=== PATIENT | male | born 1950 | race Caucasian/White ===

== ENCOUNTER → 2017-11-07 | Outpatient (CLI) | payer OTHER | END | disposition home or self-care (01) | LOC: OIH 08:30 | PROVIDERS: ATTEND Internal Medicine | DX: M19.011 Primary osteoarthritis, right shoulder (principal); M24.811 Other specific joint derangements of right shoulder, not elsewhere classified | CPT/HCPCS: 73030 ==

== ENCOUNTER → 2018-06-03 | Outpatient (CLI) | payer OTHER | END | disposition home or self-care (01) | LOC: OIH 16:28 | PROVIDERS: ATTEND Internal Medicine | DX: I10 Essential (primary) hypertension (principal); M47.815 Spondylosis without myelopathy or radiculopathy, thoracolumbar region | CPT/HCPCS: 71046 ==

== ENCOUNTER → 2024-09-15 | Outpatient (CLI) | payer OTHER ==
--- NOTE | 2024-09-15 15:20 | HMCIMG ---
Exam Type: MR SHOULDER RIGHT WO Clinical Information: M75.101 Unspecified rotator cuff tear or rupture of right shoulder, not spe Comparison: None Findings: Significant degenerative changes of the glenohumeral joint with remodeling of the humeral head which may represent evidence of old trauma. Joint effusion of the glenohumeral joint. Partial thickness rotator cuff tendon tear without retraction. SLAP tear. Moderate glenohumeral joint effusion. No acute fractures or dislocations. IMPRESSION: Extensive changes as noted above.
== END | disposition home or self-care (01) ==
LOC: RAH 13:35
PROVIDERS: ATTEND Orthopaedic Surgery
DX: S46.011A Strain of muscle(s) and tendon(s) of the rotator cuff of right shoulder, initial encounter (principal); M19.011 Primary osteoarthritis, right shoulder; M25.411 Effusion, right shoulder; X58.XXXA Exposure to other specified factors, initial encounter; Y93.89 Activity, other specified; Y92.89 Other specified places as the place of occurrence of the external cause; Y99.8 Other external cause status
CPT/HCPCS: 73221

== ENCOUNTER 2025-04-05 09:41 | Observation (INO) | payer OTHER ==
[2025-04-04 10:28] LABS: IMMATURE GRANULOCYTE ABSOLUTE 0.01 K/uL (0-1); NUCLEATED RED BLOOD CELLS 0.0 % (0.0-0.19); PLATELET COUNT (AUTO) 143 K/uL (130-400); RED BLOOD CELL COUNT(AUTO) 4.70 MIL/uL (4.50-6.20); RED CELL DISTRIBUTION WIDTH 13.8 % (11.0-15.5); WHITE BLOOD COUNT (AUTO) 6.0 K/uL (4.8-10.8)
[2025-04-04 10:33] LABS: CREATININE 1.1 mg/dL (0.5-1.3); GLOMERULAR FILTR. RATE CALC 69.0 mL/min (>90); GLUCOSE,RANDOM 164.0 mg/dL (70-105); SODIUM SERUM 136.0 mmol/L (136-145); UREA NITROGEN, BLOOD 19.0 mg/dL (7-18)
[2025-04-04 10:35] LABS: APPEARANCE,URINE CLEAR (CLEAR); GLUCOSE, URINE (UA) 500 mg/dL (NEGATIVE); LEUKOCYTE ESTERASE ,URINE 75 Leu/uL (NEGATIVE); NITRATE,URINE NEGATIVE (NEGATIVE); OCCULT BLOOD,URINE MODERATE (NEGATIVE)
[2025-04-04 10:38] LABS: ADD UA MICROSCOPIC YES
[2025-04-04 10:42] VITALS: BP 125/68; PULSE 74; RESP 17; TEMP 98.6
[2025-04-04 10:45] LABS: INR 0.99 (0.85-1.15)
[2025-04-04 10:58] LABS: SQUAMOUS EPITHELIAL CELL,UR Rare /HPF (0-2)
--- NOTE | 2025-04-04 13:45 | NUR ---
RE: LABS REPORTED UA RESULTS TO DR DEWITT (PATIENT ASYMPTOMATIC). NO NEW ORDERS RECEIVED. PENDING URINE CX RESULTS.
[2025-04-05] VITALS (24 sets, daily range): BP systolic 98–152; BP diastolic 44–81; PULSE 69–94; RESP 18–22; TEMP 97.2–97.9; O2SAT 94
[~2025-04-05] VITALS: Ht 180.3 cm; Wt 123.1 kg
[~2025-04-05 09:41] MED LIST: ASPI-1197 PO; ATOR40TA71 PO; EMPA25TA PO; HYDR12.54 PO; LOSA50TA64 PO; METF-446 PO; OLOD4MIS2 IH; SEMA2PEN SQ; TAMSULOSIN PO
[2025-04-05] MEDS: 0.9%NACL 1000ML 1,000 ML IV ONE (10:12)
[2025-04-05] MEDS ORDERED: PROMETHAZINE HCL 25 MG/ML 1ML AMPULE IM PRN (11:30)
[2025-04-05] MEDS ORDERED: LIDOCAINE PF 100MG/5ML (2%) SYRINGE 5ML ONE (12:30)
[2025-04-05] MEDS ORDERED: MIDAZOLAM HCL 1 MG/ML 2ML VIAL ONE (12:32)
[2025-04-05] MEDS: TRANEXAMIC ACID 1000MG/10ML ONE ×2 (13:40→18:17)
[2025-04-05] MEDS ORDERED: NEOSTIGMINE METHYLSULFATE 1MG/ML IV ONE (14:27)
[2025-04-05] MEDS ORDERED: GLYCOPYRROLATE 0.2 MG/ML 5 ML VIAL ONE (14:27)
[2025-04-05] MEDS: SUGAMMADEX SODIUM 200 MG/2 ML VIAL IV ONE (16:09)
[2025-04-05] MEDS: FAMOTIDINE 20MG VIAL IV ONE (16:10)
[2025-04-05] MEDS: 0.9%NACL 1000ML 1,000 ML IV SCH (17:30)
[2025-04-05] MEDS ORDERED: PoTASSium chloRIDE 20MEQ ER 20 MEQ ERTAB PO PRN (17:30)
[2025-04-05] MEDS ORDERED: FE FUMARATE/FA/MV, MIN COMB#15 1 TAB PO PRN (17:30)
[2025-04-05] MEDS ORDERED: PoTASSium chl 10% ELIXIR 20MEQ 20 MEQ/15 ML UDCUP PO PRN (17:30)
[2025-04-05] MEDS ORDERED: CALCIUM CARB 500MG PO PRN (17:30)
--- NOTE | 2025-04-05 17:47 | OP ---
Operative Note: DATE OF PROCEDURE: 04/05/25 SURGEON: THAI DEWITT MD FIELD SEISMOLOGIST: [REECE GUSMAN AND ALVARO JEFFREY, SISSY'S] ANESTHESIA: [General anesthesia plus regional block] ANESTHESIOLOGIST/POST OFFICE MANAGER: [VALDO PHELPS CRNA] PREOPERATIVE DIAGNOSIS: [Right shoulder osteoarthritis, partial rotator cuff tear, labral tear, tendinosis rotator cuff] POSTOPERATIVE DIAGNOSIS: [Same] IMPLANTS: [Biomet comprehensive shoulder system. Mini glenoid base plate with one 6.5 central screw and four 4.75 peripheral screws. 36 mm glenosphere. 14 mm humeral stem. 40 mm humeral tray and 36 mm humeral bearing.] PROCEDURE: [Reverse right total shoulder arthroplasty] ESTIMATED BLOOD LOSS: [400 mL] INDICATIONS: [The patient is a 75-year-old male with a long history of right shoulder pain secondary to osteoarthritis that has not responded to conservative treatment in the longer. The patient has significant restriction in range of motion and chronic pain. The patient has been admitted for a total shoulder arthroplasty, procedure that he understood, risks, benefits and possible complications and agreed to sign the consent form] DESCRIPTION OF PROCEDURE: [After adequate general anesthesia was achieved and regional block obtained the patient was placed in the beach chair position and the right upper extremity was prepped and draped in the usual manner. After identification of the bony landmarks and incision was carried down in the anterior aspect of the shoulder following the deltopectoral line through the skin followed by dissection of the subcutaneous tissue. After identification of the cephalic vein the deltopectoral space was developed and we proceeded to dissect the 2 muscles and retract them to enter into the space identifying the clavipectoral fascia which was incised just lateral to the short head of the biceps and directed superiorly and inferiorly. With the arm in a slight abduction and with a Lockhart retractor elevating the abductor muscle were able to identify the subscapularis tendon and the insertion of the pectoralis muscle at the humerus as well as the circumflex vessels in the inferior border of the subscapularis. The vessels were ligated with two #1 Vicryl stitches at the most lateral aspect of the subscapularis,. The 1 cm superior portion of the pectoralis tendon insertion was cut leaving a small cuff of tendon and we then proceeded to open the long head of the biceps tendon sheath pulling then the tendon and applying to #2 Ethibond sutures through it and then tying it to the pectoralis cuff for a soft tissue tenodesis. The tendon was then cut proximal to this tenodesis and we followed the tendon proximally cutting through the tendon sheath all the way to the bicipital groove removing then the tendon at this level. At this point we proceeded then to peel of the subscapularis tendon of the lesser tuberosity while at the same time externally rotating the arm exposing the humeral head and proceeded with the dissection all the way to the posterior aspect of the humeral head using the Bovie cautery. A tag suture with #1 Ethibond stitch was applied to the superolateral corner of the subscapularis previous to the detachment. At this point the humeral head was presented through the wound by externally rotating the arm further and extending it. We then proceeded to make a starting hole in the top of the humeral head entering the canal and then we proceeded to ream out to the appropriate size leaving the last reamer in place and then applying the humeral head cutting guide with 40 d egree retroversion and after the guide was secured with pins we proceeded to remove the intramedullary reamer and with the use of the oscillating saw we proceeded to remove the humeral head. We then proceeded to use the rasps from the smallest to the chosen diameter obtain an adequate fit leaving the last rasp in place. Then retractors were applied anteriorly and posteriorly inferiorly to the glenoid keeping the arm externally rotated and after the glenoid was exposed we proceeded to remove the remnants of the labrum and we applied the a drill guide to prepare the area to place the glenoid base plate inserting through this guide a wire across the glenoid. At this point we then proceeded to apply the Reamer for the center post and the base plate once this was achieved the base plate was then inserted and tapped against the glenoid obtain an adequate fixation. A central 6.5 mm cortical screws was applied through the center post obtaining adequate fixation and continue the fixation of the baseplate with 4 peripheral screws. We then proceeded to apply the trial glenosphere and then the trial humeral insert and cup and the shoulder was reduced. Range of motion was tested and x-rays were taken once satisfied with the position of the components and the range of motion we proceeded then to remove the trial components. The joint was again irrigated with antibiotic solution and we then placed a final glenosphere and check the position with the C arm. Then we presented the proximal aspect of the humerus and after irrigating the canal we proceeded then to apply #2 Ethibond sutures through the anterior rim of the bone of the humerus and after this was completed we then proceeded to insert the final humeral stem followed by application of the humeral cup and insert. We then reduced the shoulder joint and repaired the subscapularis muscle back to the lesser tuberosity passing each end of the #2 Ethibond sutures through the tendon and then threaded them through the loops and tied them to themselves providing adequate reattachment. At this point we checked again the range of motion, stability and final x-rays were taken. A drain was placed through separate stab incision and we proceeded then to close the wound with reapproximation of the deltopectoral interval with #1 Vicryl simple stitches followed by closure of the subcutaneous tissue with 2-0 Monocryl inverted stitches and the skin was closed with running stitch with 3-0 Monocryl subcuticularly. Dermabond was applied to cover the incision and then Telfa dressing was applied to cover it and OpSite was then finally applied to cover the Telfa dressing. The drain was connected to the reservoir and the exit of the drain was covered with a Telfa dressing and an OpSite. The drapes were then removed, the patient was placed in an arm sling and then placed in the supine position and transferred to a hospital bed and taken to recovery room for follow-up by anesthesia. There were no complications during the procedure.] THAI DEWITT MD Apr 05, 2025 17:46
--- NOTE | 2025-04-05 18:26 | HMCIMG ---
EXAM: Intraoperative fluoroscopy INDICATION: Shoulder replacement FINDINGS: Multiple fluoroscopic images provided for shoulder replacement. Please refer to surgeon's operative note for further description of the examination. FLUOROSCOPIC TIME: 36.5 seconds No of Fluoro images: 15 IMPRESSION: Intraoperative fluoroscopy. /Gloria
[2025-04-05] MEDS: ASPIRIN 81 MG EC TAB PO SCH (20:03)
[2025-04-05] MEDS: FAMOTIDINE 20MG TAB PO SCH (20:03)
[2025-04-06] VITALS (7 sets, daily range): BP systolic 112–159; BP diastolic 56–86; PULSE 59–82; RESP 17–19; TEMP 97.4–97.8; O2SAT 98
[2025-04-06 03:50] LABS: NUCLEATED RED BLOOD CELLS 0.0 % (0.0-0.19); PLATELET COUNT (AUTO) 126.0 K/uL (130-400); RED BLOOD CELL COUNT(AUTO) 4.23 MIL/uL (4.50-6.20); RED CELL DISTRIBUTION WIDTH 13.9 % (11.0-15.5); WHITE BLOOD COUNT (AUTO) 9.0 K/uL (4.8-10.8)
[2025-04-06 04:16] LABS: CREATININE 1.1 mg/dL (0.5-1.3); GLOMERULAR FILTR. RATE CALC 69.0 mL/min (>90); GLUCOSE,RANDOM 154.0 mg/dL (70-105); SODIUM SERUM 135.0 mmol/L (136-145); UREA NITROGEN, BLOOD 21.0 mg/dL (7-18)
--- NOTE | 2025-04-06 11:12 | NUR ---
DC PLAN VISITED WITH PATIENT. PATIENT LIVES WITH SPOUSE. INDEPENDENT ABLE TO PERFORM ADL'S. PATIENT HAS NO SERVICES. CANDelmi 02 CPAP AT NIGHT. [facility]. Addendum: 04/06/25 at 1114 by MARYJANE ENGEL RN CM Amended: Links added.
[2025-04-06] MEDS ORDERED: OXYC-38 PO (15:29)
--- NOTE | 2025-04-06 15:32 | PN ---
POD #1 VSS, afebrile Adequate pain control Drain output: None Awake, alert, oriented. Dressing intact Drain removed, clear. Arm bruising present Distal NV intact A: S/P right shoulder reverse arthroplasty. P: Patient will be dismissed today. Arrangements completed. Vitals/Labs Vital Signs Date Time Temp Pulse Resp B/P (MAP) Pulse Ox O2 Delivery O2 Flow Rate FiO2 04/06/25 12:00 97.7 79 17 125/59 94 Room Air 04/06/25 07:13 0 21 Laboratory Tests 04/06/25 03:15 Medications Current Medications Cefazolin Sodium 1 gm STK-MED ONCE .ROUTE Last administered on 04/05/25at 14:53; Start 04/05/25 at 10:12; Stop 04/05/25 at 10:12; Status DC Cefazolin Sodium 2 gm STK-MED ONCE .ROUTE Last administered on 04/05/25at 13:50; Start 04/05/25 at 10:12; Stop 04/05/25 at 10:12; Status DC Sodium Chloride 1,000 ml @ As Directed STK-MED ONCE IV; Start 04/05/25 at 10:12; Stop 04/05/25 at 10:12; Status DC Ondansetron HCl 4 mg AD PRN IVP; Start 04/05/25 at 11:30; Stop 04/05/25 at 19:04; Status DC Metoclopramide HCl 10 mg AD PRN IVP; Start 04/05/25 at 11:30; Stop 04/05/25 at 19:04; Status DC Promethazine HCl 25 mg AD PRN IM; Start 04/05/25 at 11:30; Stop 04/05/25 at 19:04; Status DC Ketorolac Tromethamine 30 mg AD PRN IV; Start 04/05/25 at 11:30; Stop 04/05/25 at 19:04; Status DC Morphine Sulfate 2 mg AD PRN IVP; Start 04/05/25 at 11:30; Stop 04/05/25 at 19:04; Status DC Fentanyl Citrate 25 mcg Q5MIN PRN IVP; Start 04/05/25 at 11:30; Stop 04/05/25 at 19:04; Status DC Naloxone HCl 0.1 mg AD PRN IVP; Start 04/05/25 at 11:30; Stop 04/05/25 at 19:04; Status DC Tranexamic Acid 1,000 mg STK-MED ONCE .ROUTE Last administered on 04/05/25at 13:40; Start 04/05/25 at 11:44; Stop 04/05/25 at 11:44; Status DC Lidocaine HCl 100 mg STK-MED ONCE .ROUTE; Start 04/05/25 at 12:30; Stop 04/05/25 at 12:31; Status DC Ondansetron HCl 4 mg STK-MED ONCE .ROUTE; Start 04/05/25 at 12:30; Stop 04/05/25 at 12:31; Status DC Dexamethasone Sodium Phosphate 10 mg STK-MED ONCE .ROUTE; Start 04/05/25 at 12:30; Stop 04/05/25 at 12:31; Status DC Rocuronium Cook 50 mg STK-MED ONCE .ROUTE; Start 04/05/25 at 12:31; Stop 04/05/25 at 12:32; Status DC Propofol 200 mg STK-MED ONCE IV; Start 04/05/25 at 12:32; Stop 04/05/25 at 12:32; Status DC Midazolam HCl 2 mg STK-MED ONCE .ROUTE; Start 04/05/25 at 12:32; Stop 04/05/25 at 12:32; Status DC Fentanyl Citrate 100 mcg STK-MED ONCE .ROUTE; Start 04/05/25 at 12:33; Stop 04/05/25 at 12:33; Status DC Cefazolin Sodium 1 gm STK-MED ONCE .ROUTE Last administered on 04/05/25at 13:50; Start 04/05/25 at 13:51; Stop 04/05/25 at 13:51; Status DC Ephedrine Sulfate 50 mg STK-MED ONCE .ROUTE; Start 04/05/25 at 14:21; Stop 04/05/25 at 14:21; Status DC Rocuronium Cook 50 mg STK-MED ONCE .ROUTE; Start 04/05/25 at 14:23; Stop 04/05/25 at 14:23; Status DC Glycopyrrolate 1 mg STK-MED ONCE .ROUTE; Start 04/05/25 at 14:27; Stop 04/05/25 at 14:27; Status DC Neostigmine Methylsulfate 10 mg STK-MED ONCE IV; Start 04/05/25 at 14:27; Stop 04/05/25 at 14:27; Status DC Phenylephrine HCl 10 mg STK-MED ONCE IV; Start 04/05/25 at 15:12; Stop 04/05/25 at 15:12; Status DC Acetaminophen 100 ml @ As Directed STK-MED ONCE .ROUTE; Start 04/05/25 at 16:10; Stop 04/05/25 at 16:10; Status DC Famotidine 20 mg STK-MED ONCE IV; Start 04/05/25 at 16:10; Stop 04/05/25 at 16:10; Status DC Sodium Chloride 1,000 ml @ 100 mls/hr Q10H IV; Start 04/05/25 at 17:30; Stop 04/06/25 at 17:29 Polyethylene Glycol 17 gm DAILY PO; Start 04/06/25 at 09:00; Stop 05/06/25 at 08:59 Bisacodyl 10 mg DAILY PRN RC; Start 04/08/25 at 17:30; Stop 05/08/25 at 17:29 Ketorolac Tromethamine 15 mg Q6H PRN IV; Start 04/05/25 at 17:30; Stop 04/10/25 at 17:29 Famotidine 20 mg BID PO Last administered on 04/06/25at 07:46; Start 04/05/25 at 21:00; Stop 05/05/25 at 20:59 Tamsulosin HCl 0.4 mg DAILY PO Last administered on 04/06/25at 07:46; Start 04/06/25 at 09:00; Stop 05/06/25 at 08:59 Multivitamins/Iron 1 tab DAILY PRN PO; Start 04/05/25 at 17:30; Stop 05/05/25 at 17:29 Temazepam 15 mg HS PRN PO; Start 04/05/25 at 17:30; Stop 05/05/25 at 17:29 Ondansetron HCl 4 mg Q6H PRN IVP; Start 04/05/25 at 17:30; Stop 05/05/25 at 17:29 Calcium Carbonate 500 mg Q12H PRN PO; Start 04/05/25 at 17:30; Stop 05/05/25 at 17:29 Diphenhydramine HCl 25 mg Q6H PRN IVP; Start 04/05/25 at 17:30; Stop 05/05/25 at 17:29 Insulin Human Regular INSULIN SLIDING SCAL... ACHS SQ Last administered on 04/06/25at 12:41; Start 04/05/25 at 21:00; Stop 05/05/25 at 20:59 Cefazolin Sodium 2 gm Q8H IVPB Last administered on 04/06/25at 06:13; Start 04/05/25 at 22:30; Stop 04/06/25 at 06:31; Status DC Docusate Sodium 100 mg BID PO Last administered on 04/05/25at 20:03; Start 04/05/25 at 21:00; Stop 05/05/25 at 20:59 Potassium Chloride 100 ml @ 100 mls/hr AD PRN IV; Start 04/05/25 at 17:30; Stop 05/05/25 at 17:29 Potassium Chloride 20 meq AD PRN PO; Start 04/05/25 at 17:30; Stop 05/05/25 at 17:29 Potassium Chloride 20 meq AD PRN PO; Start 04/05/25 at 17:30; Stop 05/05/25 at 17:29 Oxycodone HCl 5 mg Q4H PRN PO; Start 04/05/25 at 17:30; Stop 04/12/25 at 17:29 Oxycodone HCl 10 mg Q4H PRN PO; Start 04/05/25 at 17:30; Stop 04/12/25 at 17:29 Tramadol HCl 50 mg Q6H PRN PO; Start 04/05/25 at 17:30; Stop 04/10/25 at 17:29 Acetaminophen 1,000 mg Q8H PO Last administered on 04/06/25at 12:39; Start 04/05/25 at 17:30; Stop 05/05/25 at 17:29 Aspirin 81 mg BID PO Last administered on 04/06/25at 07:46; Start 04/05/25 at 21:00; Stop 05/05/25 at 20:59 Tranexamic Acid 1,000 mg STK-MED ONCE .ROUTE Last administered on 04/05/25at 18:17; Start 04/05/25 at 18:03; Stop 04/05/25 at 18:04; Status DC THAI DEWITT MD Apr 06, 2025 15:32
--- NOTE | 2025-04-06 16:19 | NUR ---
REMOVAL HEMOVAC DR MARTINEZ IV SL DC ESTEE WELL DC INSTRUCTIONS GIVEN DC PAPERSIGNED FU APPT DR MARTINEZ APTT DC HM ESCROTED VIA WC TO FRONT OF HOSPITAL STABLE COND
== END 2025-04-06 16:30 | disposition home health service (06) ==
LOC: DAH 09:41 → DAHIP 17:21 → 4DH 19:00
PROVIDERS: ADMIT Orthopaedic Surgery; ATTEND Orthopaedic Surgery
DX: M19.011 Primary osteoarthritis, right shoulder (principal); M75.101 Unspecified rotator cuff tear or rupture of right shoulder, not specified as traumatic; I10 Essential (primary) hypertension; I25.10 Atherosclerotic heart disease of native coronary artery without angina pectoris; J44.9 Chronic obstructive pulmonary disease, unspecified; E11.9 Type 2 diabetes mellitus without complications; G89.29 Other chronic pain; M25.511 Pain in right shoulder; R79.1 Abnormal coagulation profile; Z98.890 Other specified postprocedural states; Z79.899 Other long term (current) drug therapy
CPT/HCPCS: 23472; 80048 ×2; 85025; 85610; 85730; 87086; 81001; 36415 ×2; 87641; 96372 ×2; 96365; 64415; 82948 ×5; 88311; 88304; 73030; 97161; 97116 ×2; 97530 ×5; 96366; 85027; C1776 ×4; C1713 ×5; C1768; G0378 ×23; A4663; J7030 ×2; A4565; J1308; J3010; J0690 ×5; J3490 ×6; J1100; J2003; J2250; J2704; J2405; J2710; J2371; A6204; A4649 ×3; A4930; A5120; A4215; A4223 ×2; A4213; A4222; A4221; A4216; A4600; J1815